=== PATIENT | female | born 1995 | race Caucasian/White ===

== ENCOUNTER 2019-04-15 00:35 | Day surgery (SDC) | payer OTHER, SELFPAY ==
[2019-04-07 12:35] VITALS: BMI 51.4
--- NOTE | 2019-04-14 17:55 | WPDANESEPP ---
Anes - Eval Pre Procedure Procedure: Operation Date: 04/15/19 07:30 Proposed Procedures p Laparoscopic Tubal Ligation with Cautery - Milton Ochoa MD Date/Time: 04/14/19 17:55 Pre Op Diagnosis: Vol Sterilization Patient Data Age: 23 Gender: F Height: 1.65 m Weight: 140.16 kg Allergies Allergy/AdvReac Type Severity Reaction Status Date / Time diphenhydramine AdvReac hallucinati Verified 04/07/19 12:36 [From Benadryl] ons Home Medications Medication Instructions Recorded Confirmed Type cholecalciferol (vitamin D3) 5,000 unit PO DAILY 04/07/19 04/07/19 History [Vitamin D3] loperamide 2 mg PO Q4H PRN 04/07/19 04/07/19 History testosterone cypionate 50 mg SUBCUT WEEKLY 04/07/19 04/07/19 History Patient hx anesthesia problems: none Family hx anesthesia problems: none PMFSH Past Medical History Medical History (Updated 04/14/19 @ 08:48 by Michael Das DO) Anxiety Asthma Bipolar disorder Depression Morbid obesity Surgical History Surgical History (Updated 04/14/19 @ 08:48 by Michael Das DO) History of tonsillectomy Exam Day of Procedure 04/14/19 17:55
[2019-04-15 06:41] VITALS: BP 121/66; PULSE 77; RESP 20; TEMP 36.7; O2SAT 99
--- NOTE | 2019-04-15 07:09 | WPDANESEFPP ---
Anes - Eval Final PreProcedure Day of Procedure 04/15/19 07:09 Patient weight: super morbidly obese Heart: regular rate and rhythm Lungs: clear to auscultation and normal air movement Airway: Mallampati scale class II Neurological: alert and oriented Last oral intake: >/= 8 hours ASA classification: III Emergent: no Anesthetic plan: proceed Anesthesia type and monitoring: general ETT and standard monitoring Informed Consent: The patient's anesthetic plan and its attendant risks and benefits were discussed with the patient/family/POA. Questions were solicited and answers provided to the satisfaction of the patient/family/POA.
--- NOTE | 2019-04-15 07:21 | PM.IMHP ---
H&P: HPI History of Present Illness Chief complaint: Vol Sterilization Narrative: Martha Barton is a 23 year old female who has unwanted fertility. We have agreed to perform laparoscopic bilateral tubal ligation. She understands there is risk. She understands that injuries may occur that result in hospitalization, severe illness, and more surgery. She understands there is risk of hemorrhage and infection. Review of Systems Constitutional: Constitutional: Reports no additional constitutional complaints, Denies fatigue, Denies headache(s), Denies lethargy and Denies weakness Eyes: Eyes: Reports no additional eye complaints, Denies blurry vision and Denies photophobia ENT: Reports as per HPI, Denies headache(s) and Denies neck pain Cardiovascular: Cardiovascular: Denies chest pain, Denies diaphoresis, Denies leg edema, Denies palpitations and Denies dyspnea Respiratory: Respiratory: Denies hemoptysis, Denies dyspnea and Denies wheezing Gastrointestinal: Gastrointestinal: Denies abdominal pain, Denies melena, Denies bloating, Denies hematochezia, Denies nausea and Denies vomiting Genitourinary: Genitourinary: Reports no additional female genitourinary complaints Musculoskeletal: Musculoskeletal: Denies joint swelling, Denies neck pain, Denies numbness and Denies stiffness Neurologic: Denies Abnormal speech present, Denies confusion, Denies headache(s), Denies numbness and Denies weakness Psychiatric: Psychiatric: Denies anxiety, Denies confusion, Denies depression, Denies homicidal ideation and Denies suicidal ideation Endocrine: Endocrine: Denies fatigue and Denies palpitations Allergic/Immunologic: Allergic/Immunologic: Denies wheezing PMFSH Past Medical History Medical History (Updated 04/15/19 @ 07:22 by Milton Ochoa MD) Anxiety Asthma Bipolar disorder Depression Morbid obesity Surgical History Surgical History (Updated 04/14/19 @ 08:48 by Michael Das DO) History of tonsillectomy Meds Home Medications and Allergies Home Medications Medication Instructions Recorded Confirmed Type cholecalciferol (vitamin D3) 5,000 unit PO DAILY 04/07/19 04/07/19 History [Vitamin D3] loperamide 2 mg PO Q4H PRN 04/07/19 04/07/19 History testosterone cypionate 50 mg SUBCUT WEEKLY 04/07/19 04/07/19 History Allergies Allergy/AdvReac Type Severity Reaction Status Date / Time diphenhydramine AdvReac hallucinati Verified 04/07/19 12:36 [From Benadryl] ons Exam Const: General: healthy appearing, comfortable and no acute distress; No confusion Orientation/consciousness: No confusion Eyes: Direct Ophthalmoscopy: No photophobia Resp: Auscultation: clear to auscultation bilaterally, no rales, no rhonchi and no wheezes Cardio: Rate: regular rate Heart sounds: no click, no murmurs and no rubs GI: Inspection: non-distended GI Palp: No abdominal tenderness Auscultation: normal bowel sounds Neuro: General: No confusion Speech: No Abnormal speech present Extrem: General: normal to inspection, no pedal edema and no calf tenderness Assessment and Plan Assessment and plan (1) Unwanted fertility: Code(s): Z30.09 - Encounter for other general counseling and advice on contraception Status: Acute Assessment and Plan: This patient is a 23-year-old female presents for laparoscopic bilateral tubal ligation. She understands the risks, benefits, and alternatives. She has completed the consent process is ready to proceed.
[2019-04-15] MEDS: LACTATED RINGERS 1,000 ML 30 ML IV CONT ×2 (07:25→08:23)
[2019-04-15] MEDS: KETOROLAC 30 MG/ML VIAL (*BKC) IV PUSH (08:11)
[2019-04-15 08:23] VITALS: BP 129/72; PULSE 95; RESP 16; TEMP 36.4; O2SAT 100
--- NOTE | 2019-04-15 08:26 | PM.PROC ---
Procedure Note - Detailed Date of procedure: 04/15/19 Pre-op diagnosis: Vol Sterilization Post-op diagnosis: same Procedure performed: Laparoscopic bilateral tubal ligation Description of procedure: Patient was taken the operating room. She has prepped draped in the dorsal lithotomy position after induction of general anesthesia. A 5 mm abdominal incision was made in left upper quadrant of the abdomen with scalpel. A 5 mm trocars inserted the intra-abdominal cavity under direct visualization of the scope. Pneumoperitoneum was achieved. A 5 mm periumbilical incision was made using a scalpel on the abdominal scan. A 5 mm trocar was inserted the intra-abdominal cavity under visualization of the scope. The fallopian tube was grasped with the bipolar cautery in the ampullary region. It was completely desiccated in a 1.5 cm area of the fallopian tube. This was performed in identical fashion on the contralateral side. The instruments were withdrawn. The pneumoperitoneum was reduced. The trocars were removed. The skin was closed with subcuticular 4 Monocryl. This incisions were covered with Dermabond. The patient tolerated the procedure well. She was taken to recover room in stable condition. Anesthesia: GETA Surgeon: Milton Ochoa MD Estimated blood loss (mL): 10 Drains: No Packing: No Pathology: none sent Complications: No immediate complications Condition: stable Disposition: PACU Findings: Normal female pelvic anatomy.
[2019-04-15 08:35] VITALS: BP 114/66; PULSE 84; RESP 14; O2SAT 96
[2019-04-15] MEDS: HYDROMORPHONE HCL 1 MG/ML INJ 0.25 MG IV PUSH ×2 (08:42→08:47)
[2019-04-15 08:50] VITALS: BP 108/58; PULSE 81; RESP 14; O2SAT 98
[2019-04-15 08:53] VITALS: BP 127/69; PULSE 73; RESP 14
[2019-04-15 09:20] VITALS: BP 136/69; PULSE 76; RESP 14
== END 2019-04-15 09:39 | disposition home or self-care (01) ==
PROVIDERS: PCP Student in an Organized Health Care Education/Training Program; Visit Provider Obstetrics & Gynecology
PROC: (CPT 58671; principal; 2019-04-15 07:30)
DX: Z30.2 Encounter for sterilization (principal); J45.909 Unspecified asthma, uncomplicated; F41.8 Other specified anxiety disorders; F31.9 Bipolar disorder, unspecified; E66.01 Morbid (severe) obesity due to excess calories; Z68.43 Body mass index [BMI] 50.0-59.9, adult
CPT/HCPCS: 58670; A9270; J0131; J0330; J1100; J1170; J1885; J2250; J2405; J2704; J3010; J7120